=== PATIENT | female | born 1980 | race Caucasian/White ===

== ENCOUNTER 2016-10-13 08:56 | Emergency (ER) | payer OTHER ==
--- NOTE | 2016-10-13 09:22 | UC ---
Dizzy HPI HPI Summary: Onset of dizziness yesterday, mostly sense of off balance with nausea, off and on since yesterday. Headache yesterday, none today. Fever of 101 during the night, no analgesics used. No cough. Has had sore throat on the right in the past, treated with antibiotics. Currently has right sided sore throat, and might on occasion be aware of soreness on that side. - History Of Current Complaint Chief Complaint: UCRespiratory Stated Complaint: DIZZINESS,THROAT,FEVER Time Seen by Provider: 10/13/16 09:20 Hx Obtained From: Patient Hx Last Menstrual Period: one month ?: No Onset/Duration: Gradual Onset, Lasting Days - 2 Timing: Constant Severity Initially: Moderate Severity Currently: Moderate Character: Lightheaded, Dizzy Aggravating Factor(s): Exertion Alleviating Factor(s): Rest Associated Signs And Symptoms: Positive: Nausea. Negative: Vomiting, Chest Pain , SOB - Risk Factors Cardiac Risk Factors: Family History CVA Risk Factor: Negative - Allergies/Home Medications Allergies/Adverse Reactions: Allergies Allergy/AdvReac Type Severity Reaction Status Date / Time Bee Venom Allergy Rash Verified 04/14/16 18:03 Cats Allergy Rash Uncoded 04/14/16 18:03 Papaya Allergy Swelling Uncoded 04/14/16 18:03 Of Face,Lips,& Throat pollen AdvReac Congestion Uncoded 10/13/16 09:16 PMH/Surg Hx/FS Hx/Imm Hx - Additional Past Medical History Additional PMH: Does not do regular exams. Previously Healthy: Yes - obese - Surgical History Surgical History: Yes Surgery Procedure, Year, and Place: Cholecystectomy, , Tubal Ligation 2011 - Family History Known Family History: Positive: Hypertension - father, Diabetes - both parents - Social History Occupation: Employed Full-time - senior litigation paralegal Lives: With Family Alcohol Use: Occasionally Substance Use Type: None Smoking Status (MU): Former Smoker Type: Cigarettes Amount Used/How Often: 1-2 Cigarettes a day Length of Time of Smoking/Using Tobacco: 16 Years Have You Smoked in the Last Year: Yes When Did the Patient Quit Smoking/Using Tobacco: ONE YEAR AGO Household Exposure Type: Cigarettes - Immunization History Most Recent Influenza Vaccination: Not the 2014/2015 Season Hx Tetanus, Diphtheria Vaccination: Yes Vaccination Up to Date: Yes Review of Systems Constitutional: Fever, Fatigue Skin: Negative Eyes: Negative - no diplopia, blurring or visual changes. ENT: Sore Throat, Nasal Discharge, Other - has had some congestion for several weeks, has not tried an antihistamine Respiratory: Negative Cardiovascular: Negative Gastrointestinal: Other - nausea only Genitourinary: Other - no history of abnormal paps or HPV Motor: Negative Neurovascular: Negative Musculoskeletal: Negative Neurological: Negative Psychological: Negative All Other Systems Reviewed And Are Negative: Yes Physical Exam Triage Information Reviewed: Yes Appearance: Ill-Appearing - looks mildly unwell, Obese Vital Signs: Initial Vital Signs Temp 99.4 F 10/13/16 09:08 Pulse 103 10/13/16 09:08 Resp 20 10/13/16 09:08 BP 125/86 10/13/16 09:08 Pulse Ox 96 10/13/16 09:08 Eyes: Positive: Conjunctiva Clear ENT: Positive: TMs normal, Tonsillar swelling - large right tonsil with bright erythema and nodular surface. No exudate. Dental Exam: Normal Neck: Positive: Supple, Nontender, No Lymphadenopathy - no enlarged nodes appreciated, but has significant fat pad under chin. Respiratory: Positive: Lungs clear, Normal breath sounds Cardiovascular: Positive: RRR, No Murmur Neurological Exam: Normal Neurological: Positive: Alert, Muscle Tone Normal, Other: Psychological Exam: Normal Skin Exam: Normal Dizzy Course/Dx - Course Course Of Treatment: given fever, treated with amoxicillin for tonsillitis; aware follow up needed. - Differential Dx/Diagnosis Differential Diagnosis/HQI/PQRI: Other - tonsillitis, vertigo Provider Diagnoses: unilateral tonsillitis Discharge - Discharge Plan Condition: Stable Disposition: HOME Prescriptions: Amoxicillin (*) [Amoxicillin 875 MG (*)] 875 mg PO BID #20 tab Patient Education Materials: Tonsillitis (ED) Forms: *Work Release Additional Instructions: A throat culture has been sent. You have a right sided tonsillitis, and, given the fever, this is likely infectious. Because you have had right sided throat pain before, it is very important that the tonsil be examined following treatment. If you continue to have enlargement of the right tonsil only, I suggest an evaluation by an ENT (ear, nose and throat) specialist. You can use ibuprofen as needed for fever.
[2016-10-13 09:26] VITALS: BP 125/86
== END 2016-10-13 10:14 | disposition home or self-care (01) ==
LOC: UCCORT 08:56
DX: J03.90 Acute tonsillitis, unspecified (principal); R42 Dizziness and giddiness; R11.0 Nausea; E66.9 Obesity, unspecified; Z90.49 Acquired absence of other specified parts of digestive tract; Z87.891 Personal history of nicotine dependence
CPT/HCPCS: 87070; 99212; G0463